=== PATIENT | female | born 1990 | race Hispanic/Latino ===

== ENCOUNTER 2017-01-24 13:53 | Emergency (ER) | payer OTHER ==
[~2017-01-24] VITALS: Ht 152.4 cm; Wt 70.3 kg
[~2017-01-24 13:53] MED LIST: HYDROCODONE/ACE1 TA1 PO; LEVEMIR FL300 UNITS/ SC; NOVOLOG 10300 UNITS/ SC
[2017-01-24 14:05] VITALS: BP 116/77
== END 2017-01-24 15:58 | disposition admitted as inpatient to this hospital (09) ==
LOC: ERH 13:53
DX: R05 Cough (principal); R11.2 Nausea with vomiting, unspecified; Z53.21 Procedure and treatment not carried out due to patient leaving prior to being seen by health care provider
CPT/HCPCS: 87804; 87804-59; 99281